=== PATIENT | male | born 1980 | race Caucasian/White ===

== ENCOUNTER 2024-05-31 05:24 | Emergency (ER) | payer BC, OTHER ==
[2024-05-31 05:54] VITALS: TEMP 101.6
[2024-05-31] MEDS ORDERED: DUONEB 0.5-3 MG/3 ml Neb IH ONE (05:55)
[2024-05-31] MEDS: DUONEB 0.5-3 MG/3 ml Neb IH ONE (05:57)
[2024-05-31] MEDS: TYLENOL 325 MG PO STA (05:57)
[2024-05-31] MEDS ORDERED: MOTRIN 600 MG ONE (06:01)
[2024-05-31] MEDS: MOTRIN 600 MG PO ONE (06:02)
--- NOTE | 2024-05-31 06:29 | ERPHSYRPT ---
- History of Present Illness Source: patient Exam Limitations: no limitations Patient Subjective Stated Complaint: pt states fever for 3 days Triage Nursing Assessment: pt ambulated into the er; pt is axo x4; c/o fever; febrile at 101.6; skin pink, hot, diaphoretic; hypoxic, O2 88% room air at time of arrival; pt states SOB; pt put on 2L, O2 95% on 2L; c/o N/V/D; tachycaric Hx Tetanus, Diphtheria Vaccination/Date Given: Yes Hx Influenza Vaccination/Date Given: Yes Hx Pneumococcal Vaccination/Date Given: No <GEOFF ORANTES - Last Filed: 05/31/24 06:46> <JOANNA OSEGUERA - Last Filed: 05/31/24 08:02> - History of Present Illness Time Seen by Provider: 05/31/24 05:31 Physician History: 43-year-old male with history of hypertension presented in the ER with flulike symptoms for the last 2 to 3 days with progressive worsening. Patient reports fever with chills, nonproductive cough and difficulty breathing. Reports nausea but no vomiting or diarrhea. Reports aches and pains all over with lack of energy, decreased oral intake feeling weak fatigued tired and dehydrated. Patient has taken Tylenol prior to arrival and currently has a temperature of 101.6. Tachypneic and mildly tachycardic with oxygen saturation dropping to 88% on room air, placed on 2 L oxygen. (GEOFF ORANTES) Allergies/Adverse Reactions: No Known Drug Allergies Allergy (Verified 05/31/24 05:42) Travel Risk - International Travel Have you traveled outside of the country in past 3 weeks: No - Emerging Infectious Disease Are you exhibiting symptoms associated with any current EIDs: Yes Symptoms: Fever, Shortness of Breath <GEOFF ORANTES - Last Filed: 05/31/24 06:46> - Review of Systems Constitutional: Fever, Chills Eyes: No Symptoms Ears, Nose, & Throat: Nose Congestion, Throat Pain Respiratory: Cough, Dyspnea Cardiac: No Symptoms Abdominal/Gastrointestinal: No Symptoms Genitourinary Symptoms: No Symptoms Musculoskeletal: Back Pain, Myalgias Neurological: Headache Psychological: No Symptoms Endocrine: No Symptoms Hematologic/Lymphatic: No Symptoms <GEOFF ORANTES - Last Filed: 05/31/24 06:46> - Past Medical History Pertinent Past Medical History: Yes Neurological History: Peripheral Neuropathy ENT History: No Pertinent History Cardiac History: Congestive Heart Failure, High Cholesterol, Hypertension Respiratory History: CHF Endocrine Medical History: Diabetes Type II Musculoskeletal History: No Pertinent History GI Medical History: No Pertinent History History: No Pertinent History Psycho-Social History: No Pertinent History Male Reproductive Disorders: No Pertinent History - Past Surgical History Past Surgical History: Yes Neuro Surgical History: No Pertinent History Cardiac: No Pertinent History Respiratory: No Pertinent History Gastrointestinal: No Pertinent History Genitourinary: No Pertinent History Musculoskeletal: No Pertinent History Male Surgical History: No Pertinent History Other Surgical History: cyst removal x2 - Social History Smoking Status: Current every day smoker How long have you smoked: 17 years Exposure to second hand smoke: Yes Drug Use: marijuana - Social Determinants of Health Will the patient participate in the screening: Yes Do you worry about a steady place to live?: No Do you have any problems with any of the following?: No known problems In the past 12 months,have you had to go without utilities?: No Transportation Issues: No Has anyone in your support network made you feel unsafe?: No Have you or anyone in your house had to go w/o enough food: No <GEOFF ORANTES - Last Filed: 05/31/24 06:46> - Physical Exam General Appearance: no apparent distress, alert Eye Exam: PERRL/EOMI Ears, Nose, Throat Exam: hearing grossly normal, pharyngeal erythema Neck Exam: normal inspection, non-tender, supple, full range of motion Respiratory Exam: diminished breath sounds, wheezing Cardiovascular/Chest Exam: normal heart sounds, regular rate/rhythm Abdominal/Gastrointestinal Exam: soft, normal bowel sounds, No tenderness Extremity Exam: non-tender, normal range of motion Neurologic Exam: alert, oriented x 3, cooperative Skin Exam: normal color SpO2 Interpretation: hypoxic SpO2: 88 O2 Delivery: Room Air <GEOFF ORANTES - Last Filed: 05/31/24 06:46> - Nursing Vital Signs Nursing Vital Signs: Initial Vital Signs Pulse Rate 101 H 05/31/24 05:44 Blood Pressure 131/93 05/31/24 05:44 O2 Sat by Pulse Oximetry 95 05/31/24 05:44 Pain Scale Pain Intensity 7 Ordered Tests: Active Orders 24 hr Category Date Time Status AMA [Release AMA] OM.NOW Care 05/31/24 07:55 Active IV Insertion STAT Care 05/31/24 05:48 Active CHEST 1 VIEW (PORTABLE) Stat Exams 05/31/24 05:48 Taken BLOOD CULTURE Stat Lab 05/31/24 06:40 Received CBC W DIFF Stat Lab 05/31/24 06:40 Completed CMP Stat Lab 05/31/24 06:40 Completed Lactic Acid Stat Lab 05/31/24 06:24 Completed MAGNESIUM Stat Lab 05/31/24 06:40 Completed TROPONIN Q4H Lab 05/31/24 06:40 Completed TROPONIN Q4H Lab 05/31/24 10:00 Ordered TROPONIN Q4H Lab 05/31/24 14:00 Ordered Respiratory Therapy Assessment DAILY RT 05/31/24 05:59 Active Medication Summary Discontinued Medications Generic Name Dose Route Start Last Admin Trade Name Freq PRN Reason Stop Dose Admin Acetaminophen 975 mg 05/31/24 05:49 05/31/24 05:57 Acetaminophen 325 Mg Tablet PO 05/31/24 05:50 Not Given STAT STA Albuterol/Ipratropium 3 ml 05/31/24 05:48 05/31/24 05:57 Ipratropium/Albuterol Sulfate 3 Ml Ampul.Neb IH 05/31/24 05:49 3 ml STAT ONE Administration Albuterol/Ipratropium Confirm 05/31/24 05:55 Ipratropium/Albuterol Sulfate 3 Ml Ampul.Neb Administered 05/31/24 05:56 Dose 3 ml IH .STK-MED ONE Ibuprofen 600 mg 05/31/24 06:00 05/31/24 06:02 Ibuprofen 600 Mg Tablet PO 05/31/24 06:01 600 mg STAT ONE Administration Ibuprofen Confirm 05/31/24 06:01 Ibuprofen 600 Mg Tablet Administered 05/31/24 06:02 Dose 600 mg .ROUTE .STK-MED ONE Lab/Rad Data: Laboratory Result Diagrams 05/31/24 06:40 05/31/24 06:40 Laboratory Results 05/31/24 05/31/24 05/31/24 Range/Units 06:40 06:40 06:40 WBC 4.0 L (4.23-9.07) x10^3/uL RBC 4.92 (4.63-6.08) x10^6/uL Hgb 14.7 (13.7-17.5) g/dL Hct 43.8 (40.1-51.0) % MCV 89.0 (79.0-92.2) fL MCH 29.9 (25.7-32.2) pg MCHC 33.6 (32.3-36.5) g/dL RDW 11.7 (11.6-14.4) % Plt Count 109 L (163-337) x10^3/uL MPV 11.0 (9.4-12.4) fL Gran % 78.3 H (34.0-67.9) % Immature Gran % (Auto) 0.3 (0.001-0.429) % Nucleat RBC Rel Count 0.0 (0.00-0.2) % Eos # (Auto) 0.01 L (0.04-0.54) x10^3/uL Immature Gran # (Auto) 0.01 (0.001-0.031) x10^3u/L Absolute Lymphs (auto) 0.39 L (1.32-3.57) x10^3/uL Absolute Monos (auto) 0.43 (0.30-0.82) x10^3/uL Absolute Nucleated RBC 0.00 (0.00-0.012) x10^3u/L Lymphocytes % 9.8 L (21.8-53.1) % Monocytes % 10.8 (5.3-12.2) % Eosinophils % 0.3 L (0.8-7.0) % Basophils % 0.5 (0.2-1.2) % Absolute Granulocytes 3.11 (1.78-5.38) x10^3/uL Basophils # 0.02 (0.01-0.08) x10^3/uL Sodium 137 (135-145) mmol/L Potassium 3.7 (3.5-5.1) mmol/L Chloride 94 L (98-107) mmol/L Carbon Dioxide 35 H (22-30) mmol/L Anion Gap 11.4 (5-15) MEQ/L BUN 4 L (9-20) mg/dL Creatinine 0.63 L (0.66-1.25) mg/dL Estimated GFR 121.0 ML/MIN Glucose 120 H (74-106) mg/dL Lactic Acid (0.4-2.0) Calcium 9.0 (8.4-10.2) mg/dL Magnesium 1.7 (1.6-2.3) mg/dL Total Bilirubin 0.90 (0.2-1.3) mg/dL AST 33 (17-59) U/L ALT 16 (0-50) U/L Alkaline Phosphatase 82 (38-126) U/L Troponin I < 0.012 (0.000-0.033) ng/mL Serum Total Protein 6.8 (6.3-8.2) g/dL Albumin 4.2 (3.5-5.0) g/dL Influenza Type A Ag (NEGATIVE) Influenza Type B Ag (NEGATIVE) RSV (PCR) (NEGATIVE) SARS-CoV-2 (PCR) (NEGATIVE) 05/31/24 05/31/24 Range/Units 06:30 06:24 WBC (4.23-9.07) x10^3/uL RBC (4.63-6.08) x10^6/uL Hgb (13.7-17.5) g/dL Hct (40.1-51.0) % MCV (79.0-92.2) fL MCH (25.7-32.2) pg MCHC (32.3-36.5) g/dL RDW (11.6-14.4) % Plt Count (163-337) x10^3/uL MPV (9.4-12.4) fL Gran % (34.0-67.9) % Immature Gran % (Auto) (0.001-0.429) % Nucleat RBC Rel Count (0.00-0.2) % Eos # (Auto) (0.04-0.54) x10^3/uL Immature Gran # (Auto) (0.001-0.031) x10^3u/L Absolute Lymphs (auto) (1.32-3.57) x10^3/uL Absolute Monos (auto) (0.30-0.82) x10^3/uL Absolute Nucleated RBC (0.00-0.012) x10^3u/L Lymphocytes % (21.8-53.1) % Monocytes % (5.3-12.2) % Eosinophils % (0.8-7.0) % Basophils % (0.2-1.2) % Absolute Granulocytes (1.78-5.38) x10^3/uL Basophils # (0.01-0.08) x10^3/uL Sodium (135-145) mmol/L Potassium (3.5-5.1) mmol/L Chloride (98-107) mmol/L Carbon Dioxide (22-30) mmol/L Anion Gap (5-15) MEQ/L BUN (9-20) mg/dL Creatinine (0.66-1.25) mg/dL Estimated GFR ML/MIN Glucose (74-106) mg/dL Lactic Acid 0.6 (0.4-2.0) Calcium (8.4-10.2) mg/dL Magnesium (1.6-2.3) mg/dL Total Bilirubin (0.2-1.3) mg/dL AST (17-59) U/L ALT (0-50) U/L Alkaline Phosphatase (38-126) U/L Troponin I (0.000-0.033) ng/mL Serum Total Protein (6.3-8.2) g/dL Albumin (3.5-5.0) g/dL Influenza Type A Ag POSITIVE A (NEGATIVE) Influenza Type B Ag NEGATIVE (NEGATIVE) RSV (PCR) NEGATIVE (NEGATIVE) SARS-CoV-2 (PCR) NEGATIVE (NEGATIVE) <GEOFF ORANTES - Last Filed: 05/31/24 06:46> - Progress Progress: improved Air Movement: fair Blood Culture(s) Obtained: Yes Antibiotics given: Yes Counseled pt/family regarding: lab results, diagnosis, need for follow-up, rad results <JOANNA OSEGUERA - Last Filed: 05/31/24 08:02> - Progress Progress Note: 05/31/24 06:59 43-year-old is evaluated in the ER for flulike symptoms. Patient has a temperature of 101 on presentation, given ibuprofen. He was hypoxic with sats around 88%, placed on 2 L oxygen and given a DuoNeb. Chest x-ray questionable airspace disease on the right reviewed by me, final official read is pending. Has normal lactate, workup is pending, care is transferred to Dr. Oseguera at end of my shift for reevaluation and final disposition. (GEOFF ORANTES) Patient endorsed Dr. Oseguera at approximately [address] Orantes. Patient workup reveals fever, hypoxia pneumonia fatigue. Patient requires hospitalization but states he cannot stay in the hospital as he has other obligations to take care of. Patient will be leaving AMA. AMA form completed. Patient is of sound mind. Patient is appropriate to make informed and independent medical decisions. Patient understands that leaving AGAINST MEDICAL ADVICE can result in delayed diagnosis, increased risk of morbidity, mortality, short and long-term disability including . In spite of these risks, patient has decided to leave AGAINST MEDICAL ADVICE. Patient understands that he may return to our ED at any point if he reconsiders. Patient agrees to follow-up with his primary care doctor within 48 hours for reevaluation. Patient voices no other complaints or concerns at this time. We will release patient AGAINST MEDICAL ADVICE per their request. Complexity of problem addressed is moderate acute complicated no critical care time. Complex of data reviewed analyzes moderate. Test ordered chest reviewed results analyzed and correlated clinically with history and physical exam. Risk of complication and or risk of morbidity/mortality of patient management is moderate. Patient will be leaving AMA. A prescription for antibiotics and i nhaler and oral steroids forwarded to patient's pharmacy. Vital stable. Time spent to discharge patient is approximately 15 minutes. No social determinants of health present to impede follow-up. Portions of this note were created with voice recognition technology. There may be grammatical, spelling, punctuation or sound alike errors 05/31/24 07:59 Patient advised of the importance of wearing a mask. Mask given to patient for home/community use. 05/31/24 08:01 (JOANNA OSEGUERA) <GEOFF ORANTES - Last Filed: 05/31/24 06:46> - Departure Departure Disposition: AMA Critical Care Time: No <JOANNA OSEGUERA - Last Filed: 05/31/24 08:02> - Departure Clinical Impression: Influenza A, Hypoxia, Pneumonia, Fatigue, Fever Condition: Stable Referrals: Provider,Unknown [Primary Care Provider] - Follow up/PCP as directed Additional Instructions: Discharge/Care Plan GARRICKRADHA QUIROGA was seen on 05/31/24 in the Emergency Room. The patient was counseled regarding Diagnosis,Lab results, Imaging studies, need for follow up and when to return to the Emergency Room. Prescriptions given: Discharge Note I have spoken with the patient and/or caregivers. I have explained the patient's condition, diagnosis and treatment plan based on the information available to me at this time. I have answered the patient's and/or caregiver's questions and addressed any concerns. The patient and/or caregivers have as good understanding of the patient's diagnosis, condition and treatment plan as can be expected at this point. The vital signs have been stable. The patient's condition is stable and appropriate for discharge from the emergency department. The patient will pursue further outpatient evaluation with the primary care physician or other designated or consulting physician as outlined in the discharge instructions. The patient and/or caregivers are agreeable to this plan of care and follow-up instructions have been explained in detail. The patient and/or caregivers have received these instruction. The patient/and or caregivers are aware that any significant change in condition or worsening of symptoms should prompt an immediate return to this or the closest emergency department or call 911. Prescriptions: Amox Tr/Potass Clav. 875 mg [Augmentin 875-125 Tablet] 875 mg PO BID 7 Days #14 tablet Prednisone 10 mg [Deltasone 10 mg] 40 mg PO DAILY 3 Days #12 tablet Albuterol 8 gm Mdi Hfa [Ventolin Hfa MDI] 8 gm IH Q4-6HPRN PRN #1 PRN Reason: Shortness Of Breath/Wheezing Azithromycin 250 mg [Zithromax 250 MG TABLET] 250 mg PO ZPACK #6 tablet
[2024-05-31 06:48] LABS: Absolute Neutrophil Ct (ANC) 3.11 x10^3/uL (1.78-5.38); BASOPHIL % 0.5 % (0.2-1.2); Basophil (Absolute #) 0.02 x10^3/uL (0.01-0.08); Eosinophil % 0.3 % (0.8-7.0); Eosinophil (Absolute #) 0.01 x10^3/uL (0.04-0.54); Hematocrit 43.8 % (40.1-51.0); Hemoglobin 14.7 g/dL (13.7-17.5); IMMATURE GRAN # 0.01 x10^3u/L (0.001-0.031); IMMATURE GRAN % 0.3 % (0.001-0.429); Lymphocyte (Absolute #) 0.39 x10^3/uL (1.32-3.57); Lymphocytes % 9.8 % (21.8-53.1); Mean Corpuscular Hemoglobin 29.9 pg (25.7-32.2); Mean Corpuscular Hgb Concent. 33.6 g/dL (32.3-36.5); Monocyte (Absolute #) 0.43 x10^3/uL (0.30-0.82); Monocytes % 10.8 % (5.3-12.2); Neutrophil % 78.3 % (34.0-67.9); Platelet Count 109 x10^3/uL (163-337); Red Blood Count 4.92 x10^6/uL (4.63-6.08); Red Cell Distribution Width 11.7 % (11.6-14.4)
[2024-05-31 06:55] LABS: ALBUMIN 4.2 g/dL (3.5-5.0); ANION GAP 11.4 MEQ/L (5-15); BILIRUBIN,TOTAL 0.9 mg/dL (0.2-1.3); Creatinine 1 0.63 mg/dL (0.66-1.25); MAGNESIUM 1.7 mg/dL (1.6-2.3); Potassium 3.7 mmol/L (3.5-5.1); Total Protein 6.8 g/dL (6.3-8.2)
[2024-05-31 07:25] LABS: INFLUENZA B NEGATIVE (NEGATIVE); RESPIRATORY SYNCTIAL VIRUS NEGATIVE (NEGATIVE); SARS-CoV-2 Xpert Express NEGATIVE (NEGATIVE)
[2024-05-31 07:26] LABS: INFLUENZA A POSITIVE (NEGATIVE)
[2024-05-31 08:15] VITALS: BP 111/65; PULSE 92; RESP 18; O2SAT 98
--- NOTE | 2024-05-31 09:09 | XRAY ---
Indication: Short of breath. Comparison: None Portable apical lordotic chest hyperinflated with subtle hazy right base interstitial opacities, possible pneumonitis/pneumonia. Remaining lungs clear. Heart borderline enlarged. Bony thorax intact with osteopenia and mild degenerative changes.
[2024-05-31 12:51] LABS: Slide Review 1 YES
== END 2024-05-31 08:22 | disposition left against medical advice (07) ==
LOC: ED 05:24
DX: J10.00 Influenza due to other identified influenza virus with unspecified type of pneumonia (principal); R09.02 Hypoxemia; R53.83 Other fatigue; R50.9 Fever, unspecified; R05.1 Acute cough; M79.10 Myalgia, unspecified site; E78.5 Hyperlipidemia, unspecified; I11.0 Hypertensive heart disease with heart failure; I50.9 Heart failure, unspecified; E11.42 Type 2 diabetes mellitus with diabetic polyneuropathy; Z79.52 Long term (current) use of systemic steroids; Z79.899 Other long term (current) drug therapy; Z72.0 Tobacco use
CPT/HCPCS: 0241U; 71045; 80053; 83605; 83735; 84484; 85025; 87040; 94640; 99284; 36415; A9270-GY